=== PATIENT | male | born 1965 | race Caucasian/White ===

== ENCOUNTER 2016-09-17 08:52 | Day surgery (SDC) | payer BC, OTHER ==
[2016-09-16 11:47] VITALS: BMI 28.9
[2016-09-17] MEDS ORDERED: PROPOFOL 20 ML ONE ×2 (10:45)
[2016-09-17 11:09] VITALS: TEMP 98.3
[2016-09-17 12:04] VITALS: BP 114/72; PULSE 66
--- NOTE | 2016-09-20 12:40 | PATH ---
Surgical Pathology Report Patient Name: LISE OATES [facility]. Rec. #: [id number] /Age/Gender: 1965 (Age: 50) / M Account: [id number] Location: [facility]-ENDOSCOPY Taken: 09/17/2016 Received: 09/17/2016 Reported: 09/20/2016 Physicians: Vito Avila M.D. Specimen(s) Received A: BX 2ND PORTION DUODENUM & DUODENAL BULB B: BX ANTRUM C: BX DISTAL ESOPHAGUS D: BX MID ESOPHAGUS Clinical History Dysphagia Hiatal hernia, Schatzki's ring, GERD Final Diagnosis A. DUODENUM, SECOND PORTION AND BULB, BIOPSY: DUODENAL MUCOSA WITH CHRONIC INFLAMMATION AND JUSTYN'S GLANDS HYPERPLASIA. NO HISTOLOGIC EVIDENCE OF GLUTEN SENSITIVE ENTEROPATHY (CELIAC DISEASE). B. STOMACH, ANTRUM, BIOPSY: GASTRIC ANTRAL MUCOSA WITH MODERATE CHRONIC GASTRITIS. IMMUNOSTAIN FOR H. PYLORI IS NEGATIVE FOR ORGANISMS. C. ESOPHAGUS, DISTAL, BIOPSY: SQUAMOUS EPITHELIUM WITH CHRONIC INFLAMMATION AND MARKED REFLUX TYPE CHANGES. NO COLUMNAR EPITHELIUM PRESENT (NO INTESTINAL METAPLASIA/MENDES'S ESOPHAGUS IDENTIFIED). D. ESOPHAGUS, MID, BIOPSY: SQUAMOUS EPITHELIUM WITH CHRONIC INFLAMMATION AND REFLUX TYPE CHANGES. NO EVIDENCE OF EOSINOPHILIC ESOPHAGITIS. Electronically Signed Blaise Ko M.D. Gross Description A. Received in formalin, labeled "biopsy second portion of duodenum and duodenal bulb" are 3 [place], irregular portions of soft tissue ranging from 0.2-0.3 cm in greatest dimension. The specimens are submitted in toto in one cassette. B. Received in formalin, labeled "biopsy antrum" are 2 [place], irregular portions of soft tissue measuring 0.1 and 0.4 cm in greatest dimension. The specimens are submitted in toto in one cassette. C. Received in formalin, labeled "biopsy distal esophagus" are 2 [place], irregular portions of soft tissue averaging 0.4 cm in greatest dimension. The specimens are submitted in toto in one cassette. D. Received in formalin, labeled "biopsy mid esophagus" are 2 [place], irregular portions of soft tissue averaging 0.2 cm in greatest dimension. The specimens are submitted in toto in one cassette. 09/17/201609/17/2016
== END 2016-09-17 12:04 | disposition home or self-care (01) ==
LOC: JASU-ENDO 08:52
PROVIDERS: ATTEND Internal Medicine Gastroenterology
PROC: 0DB68ZX Excision of Stomach, Via Natural or Artificial Opening Endoscopic, Diagnostic (ICD-10-PCS; 2016-09-17)
PROC: 0DB28ZX Excision of Middle Esophagus, Via Natural or Artificial Opening Endoscopic, Diagnostic (ICD-10-PCS; 2016-09-17)
PROC: 0DB38ZX Excision of Lower Esophagus, Via Natural or Artificial Opening Endoscopic, Diagnostic (ICD-10-PCS; 2016-09-17)
PROC: 0DB98ZX Excision of Duodenum, Via Natural or Artificial Opening Endoscopic, Diagnostic (ICD-10-PCS; principal; 2016-09-17 10:00)
DX: K21.9 Gastro-esophageal reflux disease without esophagitis (principal); K44.9 Diaphragmatic hernia without obstruction or gangrene; K25.9 Gastric ulcer, unspecified as acute or chronic, without hemorrhage or perforation; K22.2 Esophageal obstruction
CPT/HCPCS: 88305-TC; 88342-TC

== ENCOUNTER 2019-04-08 09:28 | Emergency (ER) | payer BC, OTHER ==
[2019-04-08 09:36] VITALS: BP 138/88; PULSE 71; TEMP 98.1; BMI 27.3
--- NOTE | 2019-04-08 10:13 | PDOC ---
History of Present Illness - General Chief Complaint: Pain Stated Complaint: LEFT ARM PAIN Time Seen by Provider: 04/08/19 09:58 History Source: Patient Exam Limitations: No Limitations - History of Present Illness Initial Comments: 04/08/19 10:53 Patient complains of continued swelling to left elbow with discoloration. was seen one week ago and treated with NSAIDs and a tight Jay wrap for bursitis of his left elbow. States Jay wrap with extremely tight so after 2 days he removed that Jay wrap with some discoloration noted and some tingling to his fingers. After removal patient's neuro status returned to normal but noted ecchymoses and redness. was concerned about infection. Denies fever, denies tenderness, no streaking. 04/08/19 14:01 Occurred: reports: last week Severity: reports: mild Pain Location: reports: chest Modifying Factors: improves with: cold therapy Loss of Consciousness: no loss of consciousness Associated Symptoms (Fall): denies symptoms Past History - Travel Traveled outside of the country in the last 30 days: No Close contact w/someone who was outside of country & ill: No - Past Medical History Allergies/Adverse Reactions: Allergies Allergy/AdvReac Type Severity Reaction Status Date / Time pollen extracts Allergy Verified 04/08/19 09:36 Home Medications: Ambulatory Orders Amlodipine Besylate 10 mg PO DAILY 09/16/16 Aspirin [ASA -] 81 mg PO DAILY 09/16/16 Simvastatin [Zocor -] 10 mg PO DAILY 09/17/16 Pantoprazole Sodium 40 mg PO DAILY #90 tablet. 10/10/17 Ranitidine [Zantac -] 150 mg PO DAILY #90 tablet 10/10/17 Asthma: Yes (ALLERGIC ASTHMA) COPD: No GI Disorders: Yes (COLON ANGIODYSPLASIA,COLON POLYP) HTN: Yes Hypercholesterolemia: Yes (HYPERLIPIDEMIA) Liver Disease: Yes - Surgical History Orthopedic Surgery: Yes (RIGHT KNEE ARTHROSCOPY) - Suicide/Smoking/Psychosocial Hx Smoking History: Never smoked Hx Alcohol Use: Yes (OCCASIONAL) Review of Systems - Review of Systems Able to Perform ROS?: Yes Is the patient limited Yoruba proficient: Yes Constitutional: Yes: See HPI. No: Symptoms Reported, Fever, Malaise HEENTM: Yes: See HPI. No: Symptoms Reported Respiratory: Yes: See HPI ABD/GI: No: Symptoms Reported Musculoskeletal: Yes: Symptoms Reported, See HPI Integumentary: Yes: Symptoms Reported, See HPI, Bruising, Change in Color Neurological: No: Symptoms reported All Other Systems: Reviewed and Negative *Physical Exam - Vital Signs Last Vital Signs Temp Pulse Resp BP Pulse Ox 98.1 F 71 18 138/88 99 04/08/19 09:30 04/08/19 09:30 04/08/19 09:30 04/08/19 09:30 04/08/19 09:30 - Physical Exam General Appearance: Yes: Nourished, Appropriately Dressed. No: Apparent Distress HEENT: positive: BYRON, Normal ENT Inspection, TMs Normal, Pharynx Normal Neck: negative: Tender Extremity: positive: Normal Capillary Refill, Normal Range of Motion (range of motion without tenderness pain crepitus to left elbow. Has noted soft tissue swelling consistent with olecranon bursitis without heat or true tenderness at joint space. Has ecchymosis extending from mid humerus and down through wrist, CONSISTENT with area where was tightly wrapped with Jay wrap. Patient took aspirin before and EGD that was performed 6 days ago.) Integumentary: positive: Dry, Pale, Swelling, Bruising. negative: Erythema (no erythema, no streaking, no evidence of cellulitis or neurovascular intact to hand) Neurologic: positive: steersman II-XII NML intact, Normal Mood/Affect *DC/Admit/Observation/Transfer Diagnosis at time of Disposition: Ecchymosis of forearm Bursitis Qualifiers: Bursitis location: elbow Elbow bursitis location: olecranon bursitis Laterality : left Qualified Code(s): M70.22 - Olecranon bursitis, left elbow - Discharge Dispostion Disposition: HOME Condition at time of disposition: Stable Decision to Admit order: No - Referrals Referrals: Keturah Núñez MD [Primary Care Provider] - Villa Orta MD [Staff Physician] - - Patient Instructions Printed Discharge Instructions: DI for Hematoma (Bruise), DI for Elbow Bursitis Additional Instructions: Rest, ice to area on and off for 15 minutes 4-6 times a day Avoid heavy lifting or exercise until pain and swelling is resolved or until further directed Keep area highly elevated to reduce swelling Followup with orthopedist in one to 2 days if not improving, if significantly improved may wait one week for followup with orthopedist Continue using anti-inflammatory as directed - Post Discharge Activity Forms/Work/School Notes: Back to Work
[2019-04-08] MEDS ORDERED: ALBUTEROL SO4 2.5/IPRATROPIUM 0.5 INH SOL 3 ML VIAL.NEB. NEB ONE (10:57)
[2019-04-08] MEDS ORDERED: predniSONE 20 MG TABLET (UD) PO ONE (10:58)
== END 2019-04-08 10:15 | disposition home or self-care (01) ==
LOC: JERFT 09:28
DX: M70.22 Olecranon bursitis, left elbow (principal)
CPT/HCPCS: 99281-25

== ENCOUNTER 2021-10-05 10:20 | Emergency (ER) | payer BC, OTHER ==
[2021-10-05 10:36] VITALS: TEMP 97.7; BMI 29.7
[2021-10-05] MEDS ORDERED: ACETAMINOPHEN 1000 MG/100 ML BAG IVPB ONE (10:54)
[2021-10-05] MEDS ORDERED: ONDANSETRON 4 MG/2 ML VIAL IVPUSH ONE (10:54)
[2021-10-05] MEDS ORDERED: SODIUM CHLORIDE 1,000 ML IV STA (10:54)
[2021-10-05] MEDS ORDERED: morphine CARPU-JECT 4 MG/1 ML DISP.SYRIN IVPUSH ONE (10:54)
[2021-10-05] MEDS ORDERED: ACETAMINOPHEN INJECTION 100 ML IVPB ONE (11:13)
[2021-10-05] MEDS ORDERED: morphine SULFATE 4 MG/ML VIAL ONE (11:13)
[2021-10-05] MEDS ORDERED: ONDANSETRON 4 MG/2 ML VIAL ONE (11:13)
[2021-10-05 11:52] LABS: INR 1.09 (0.83-1.09); PROTHROMBIN TIME (PATIENT) 12.6 SEC (9.7-13.0)
[2021-10-05 11:55] LABS: BASO % 0.6 % (0-2.0); EOS % 0.6 % (0-4.5); HEMATOCRIT 43.8 % (35.4-49); HEMOGLOBIN 15.8 GM/dL (11.7-16.9); LYMPH % 9.9 % (8-40); MEAN CELL VOLUME 83.4 fl (80-96); MEAN PLT VOLUME 8.5 fl (7.5-11.1); MONO % 5.8 % (3.8-10.2); NEUT % 83.1 % (42.8-82.8); PLATELET COUNT 232 10^3/uL (134-434); RBC 5.26 M/mm3 (4.00-5.60); RDW 12.6 % (11.9-15.9); WHITE BLOOD COUNT 13.6 K/mm3 (4.0-10.0)
[2021-10-05] MEDS ORDERED: HYDROmorphone HCL CARPU-JECT 2 MG/1 ML DISP.SYRIN IVPUSH ONE (12:06)
[2021-10-05 12:09] LABS: CALCIUM 9.6 mg/dL (8.5-10.1)
[2021-10-05 12:10] LABS: ALBUMIN 4.1 g/dl (3.4-5.0); BLOOD UREA NITROGEN 23.3 mg/dL (7-18)
[2021-10-05 12:13] LABS: CREATININE 1.3 mg/dL (0.55-1.3)
[2021-10-05] MEDS ORDERED: HYDROmorphone HCl 2 MG/ML VIAL ONE (12:13)
[2021-10-05 12:14] LABS: TOT PROT 6.9 g/dl (6.4-8.2)
[2021-10-05 12:15] LABS: BILIRUBIN,TOTAL 0.5 mg/dL (0.2-1)
[2021-10-05 13:03] LABS: EPI CELLS 13 /uL (0-25.1); HYALINE CASTS 7 /uL (0-3.1); PH,URINE 6.5 (5.0-8.0); URINE APPEARANCE CLEAR; URINE BACTERIA 4 /uL (0-1359); URINE BILIRUBIN NEGATIVE (NEGATIVE); URINE COLOR YELLOW; URINE GLUCOSE (UA) 1+ (NEGATIVE); URINE KETONE TRACE (NEGATIVE); URINE LEUK ESTERASE NEGATIVE (NEGATIVE); URINE NITRITE NEGATIVE (NEGATIVE); URINE PROTEIN TRACE (NEGATIVE); URINE RBC 263 /uL (0-23.9); URINE UROBILINOGEN 0.2 mg/dL (0.2-1.0); URINE WBC 11 /uL (0-25.8)
[2021-10-05] MEDS ORDERED: KETOROLAC TROMETHAMINE 15 MG/ML VIAL IVPUSH ONE (14:07)
[2021-10-05] MEDS ORDERED: TAMSULOSIN HCL 0.4 MG CAP PO ONE (14:07)
[2021-10-05] MEDS ORDERED: TAMSULOSIN HCL 0.4 MG CAP ONE (14:35)
[2021-10-05] MEDS ORDERED: KETOROLAC TROMETHAMINE 15 MG/ML VIAL ONE (14:35)
[2021-10-05 16:20] VITALS: BP 137/84; PULSE 98
== END 2021-10-05 16:20 | disposition home or self-care (01) ==
LOC: JER 10:20
PROC: 3E033GC Introduction of Other Therapeutic Substance into Peripheral Vein, Percutaneous Approach (ICD-10-PCS; principal; 2021-10-05)
DX: N20.0 Calculus of kidney (principal)
CPT/HCPCS: 36415; 74176-TC; 80053; 81003; 85025; 85610; 87086; 99285-25